=== PATIENT | female | born 1970 | race Two or more races ===

== ENCOUNTER 2022-09-14 14:04 | Emergency (ER) | payer OTHER ==
[~2022-09-14] VITALS: Ht 160 cm; Wt 104.3 kg
[2022-09-14] MEDS ORDERED: KETOROLAC TROMETHAMINE INJ 60 MG/2 ML VIAL IM ONE (15:30)
[2022-09-14] MEDS ORDERED: KETOROLAC TROMETHAMINE INJ 30 MG/ML VIAL ONE (15:41)
--- NOTE | 2022-09-14 17:00 | NUR ---
Patient arrived c/c GLF. A/O x 3
[2022-09-14] MEDS ORDERED: IBUP-1955 PO (17:43)
--- NOTE | 2022-09-14 18:25 | NUR ---
Patient discharged to home in stable condition. Written and verbal after care instructions given. Patient verbalizes understanding of instruction. Patient discharged with sling and swath in place and instructions on how to use.
[2022-09-14 18:27] VITALS: BP 213/100
== END 2022-09-14 18:27 | disposition home or self-care (01) ==
LOC: ER 14:24
DX: S46.212A Strain of muscle, fascia and tendon of other parts of biceps, left arm, initial encounter (principal); I10 Essential (primary) hypertension; E11.9 Type 2 diabetes mellitus without complications; W18.30XA Fall on same level, unspecified, initial encounter; Y93.89 Activity, other specified; Y92.89 Other specified places as the place of occurrence of the external cause; Y99.0 Civilian activity done for income or pay
CPT/HCPCS: 99284; 96372; 73090; 73060; 73030; J1885